=== PATIENT | female | born 1980 | race Caucasian/White ===

== ENCOUNTER → 2019-09-28 16:21 | Outpatient (CLI) | payer OTHER, SELFPAY ==
--- NOTE | 2019-09-28 16:23 | DI.MG.S_ITS ---
BILATERAL DIGITAL SCREENING MAMMOGRAM 3D/2D WITH CAD: 09/28/2019 CLINICAL: Routine screening. Baseline exam. No prior exams were available for comparison. The tissue of both breasts is heterogeneously dense. This may lower the sensitivity of mammography. Current study was also evaluated with a Computer Aided Detection (CAD) system. No significant masses, calcifications, or other findings are seen in either breast. IMPRESSION: NEGATIVE There is no mammographic evidence of malignancy. A 1 year screening mammogram is recommended. This exam was interpreted at Station ID: [id number]. NOTE: For mammograms, a report in lay terms will be sent to the patient. Approximately 15% of breast malignancies will not be visualized mammographically. In the management of a palpable breast mass, a negative mammogram must not discourage biopsy of a clinically suspicious lesion. Electronically Signed By: Aaron morelos/[email or web address]:09/28/2019 16:57:24 letter sent: Normal Exam ACR BI-RADS Category 1: Negative 3341F
== END ==
PROVIDERS: PCP Naturopath; Visit Provider Obstetrics & Gynecology
DX: Z12.31 Encounter for screening mammogram for malignant neoplasm of breast (principal)
CPT/HCPCS: 77063; 77067

== ENCOUNTER → 2020-10-01 16:49 | Outpatient (CLI) | payer OTHER, SELFPAY ==
--- NOTE | 2020-10-01 | DI.MG.S_ITS ---
BILATERAL DIGITAL SCREENING MAMMOGRAM 3D/2D WITH CAD: 10/01/2020 CLINICAL: Routine screening. Comparison is made to exam dated: 09/28/2019 [facility]. The tissue of both breasts is heterogeneously dense. This may lower the sensitivity of mammography. Current study was also evaluated with a Computer Aided Detection (CAD) system. No significant masses, calcifications, or other findings are seen in either breast. There has been no significant interval change. IMPRESSION: NEGATIVE There is no mammographic evidence of malignancy. A 1 year screening mammogram is recommended. This exam was interpreted at Station ID: [id number]. NOTE: For mammograms, a report in lay terms will be sent to the patient. Approximately 15% of breast malignancies will not be visualized mammographically. In the management of a palpable breast mass, a negative mammogram must not discourage biopsy of a clinically suspicious lesion. Electronically Signed By: Joshua Mcintyre acr/[email or web address]:10/01/2020 17:06:27 letter sent: Normal Exam ACR BI-RADS Category 1: Negative [id number]
== END ==
PROVIDERS: PCP Naturopath; Referring Provider Naturopath; Visit Provider Naturopath
DX: Z12.31 Encounter for screening mammogram for malignant neoplasm of breast (principal)
CPT/HCPCS: 77063; 77067

== ENCOUNTER → 2020-11-19 15:35 | Outpatient (CLI) | payer OTHER, SELFPAY ==
--- NOTE | 2020-11-19 15:37 | DI.CT.S_ITS ---
PROCEDURE: CT CHEST W CON INDICATIONS: Paralysis of vocal cords and larynx, unilateral TECHNIQUE: After the administration of intravenous contrast, 5 mm thick sections acquired from the pulmonary apices to the posterior costophrenic angles. 1 mm axial lung, 5 mm thick coronal and sagittal reformats and 7 mm axial MIP were acquired. For radiation dose reduction, the following was used: automated exposure control, adjustment of mA and/or kV according to patient size. COMPARISON: [facility], CT, CT SOFT TISSUE NECK W CON, 11/19/2020, 15:59. FINDINGS: Image quality: Excellent. Lungs and pleura: No acute air space opacities. A few pulmonary nodules measuring 4 mm or less. Right upper lobe inferiorly 4 mm, (10/207). Right middle lobe 3 mm, (10/160). Left lower lobe subpleural 2 mm, (10/286). A few scattered calcified granuloma. No pleural effusions or pneumothorax. Central and peripheral airways are patent and normal in caliber. Mediastinum: Heart size is normal. No pericardial effusion. No mediastinal or hilar adenopathy by size criteria. Thoracic aorta and central pulmonary arteries are normal in size. Esophagus is normal in caliber. No hiatal hernia. Bones and chest wall: No suspicious bony lesions. No vertebral body compression fractures. No axillary or supraclavicular adenopathy by size criteria. Thyroid gland is unremarkable. Abdomen: Visualized upper abdominal solid organs appear normal. Upper abdominal bowel loops are normal in caliber. The splenic vein is prominent at the hilum, (11/). IMPRESSION: 1. No mass or enlarged adenopathy. 2. A few pulmonary nodules measuring 4 mm or less. These most likely represent noncalcified granuloma. A few calcified granuloma are noted. 3. No acute airspace opacity. Dictated by: Parish Gambino M.D. on 11/19/2020 at 15:33 Approved by: Parish Gambino M.D. on 11/19/2020 at 15:44
--- NOTE | 2020-11-19 15:37 | DI.CT.S_ITS ---
PROCEDURE: CT SOFT TISSUE NECK W CON INDICATIONS: Paralysis of vocal cords and larynx, unilateral TECHNIQUE: After the administration of intravenous contrast, 3.0 mm axial sections acquired from the skull base to the upper chest. Additional 1.5 mm axial sections acquired through the true vocal cords. 1 mm thick coronal reformats were generated. For radiation dose reduction, the following was used: automated exposure control. COMPARISON: [facility], CT, CT CHEST W CON, 11/19/2020, 15:59. FINDINGS: Image quality: Excellent. Vocal cords: There is medial is a uribe of the right vocal cord, as on series 2, image 48. To the limits of the study, no rob masses can be seen. No abnormal enhancement. Neck spaces: The oropharynx, nasopharynx, and pharynx demonstrate no mucosal lesions. The pyriform sinuses, epiglottis, vallecular, and tongue base all appear normal. Extramucosal spaces of the neck are unremarkable. Lymph nodes: No enlarged lymph nodes seen throughout the neck. Vessels: Visualized vasculature appears patent. Glands: The parotid and submandibular glands appear normal. Thyroid gland demonstrates no significant abnormality. Miscellaneous: Visualized brain and orbits appear unremarkable. Lung apices appear clear. Superficial soft tissues appear normal. Bones: No suspicious bony lesions. Visualized sinuses and mastoids appear unremarkable. Focal C6-C7 degenerative change is seen, with mild disc space narrowing. Milder degenerative changes are seen elsewhere. IMPRESSION: There is medialization of the right vocal cord, which is consistent with the given clinical history. No masses or abnormal enhancement can be seen. A cause of the vocal cord paralysis is not identified. Focal C6-C7 degenerative change incidentally noted. Dictated by: Sam Connor M.D. on 11/19/2020 at 15:30 Approved by: Sam Connor M.D. on 11/19/2020 at 15:31
== END ==
PROVIDERS: PCP Naturopath; Referring Provider Specialist; Visit Provider Specialist
DX: J38.01 Paralysis of vocal cords and larynx, unilateral (principal); M47.812 Spondylosis without myelopathy or radiculopathy, cervical region; R91.8 Other nonspecific abnormal finding of lung field
CPT/HCPCS: 70491; 71260

== ENCOUNTER 2020-12-31 09:30 | Outpatient (RCR) | payer OTHER, SELFPAY ==
--- NOTE | 2020-12-04 17:42 | ST.OPIE ---
Visit Care Team Role Provider Type Ariana Santillan ND Primary Care Provider Non-Staff Specialty: Naturopathy Address: [address] [place] [address], [id number] Email: Guille Esquivel MD Attending Provider Non-Staff Referring Provider Specialty: Ear, Nose, Throat Address: [address] [place] [address], [id number] Email: Speech-Language Pathology Initial Evaluation COMPRESSION MOLDING MACHINE TENDER Voice Resonance Evaluation Start: 12/04/20 15:23 Freq: Status: Active Protocol: Document 12/04/20 15:23 CASEY (Rec: 12/04/20 15:32 CASEY [email or web address]) Voice and Resonance Assessment Session Time Visit Start Time 15:30 Visit Stop Time 16:30 Total Visit Minutes 60 Visit Information Visit Number Initial Evaluation Plan of Care Dates 12/04/20 - 03/04/21 Insurance Information [employer] PPD Next Note Type Next Note Type Treatment Note Referral Referring Physician Dr. Guille Esquivel Reason for Referral Paralysis of vocal cords, unilateral Patient History General Information The pt is a 40-yr-old female who was seen by Dr. 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 Symptoms started in January 2020 when the pt had an upper respiratory infection with associated hoarse voice. All other symptoms resolve with exception of voice quality. The pt started experiencing SOB while walking/hiking up hills in May. 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 Hearing Hearing Level Normal Vision Vision Status Not Impaired [place] Langauge Language(s) Spoken in the Home Ma[place] Educational Status Education Level Master's Degree Occupational Status Occupation Status Teacher (7 & 8 grade) Previous Therapy Previous Speech-Language Therapy No Oral Motor Assessment Source: [place] [employer] (MARILE[employer]). Oral-Motor Eval Completed No Subjective Subjective The pt arrived on time and provided case history supplemental to medical records. Expressed goals: That voice not become worse, and that she be able to maintain her job as a teacher, which is the family's only source of income. - Laryngeal Performance Voice Handicap Index Function Subtotal 14, Moderate Physical Subtotal 16, Mild Emotional Subtotal 12, Moderate Total Score 42 Severity Moderate (31-60) CAPE-V Overall Severity 25%, Mild (Intermittent) Roughness 28%, Mild-Mod (Intermittent) Breathiness WNL Strain 9%, Minimal (Intermittent) Pitch 15%, Mild (Reduced low range) Normal Resonance? Yes Additional Features Glottal Hoang,Pitch Instability Maximum Phonation Time MPT Norms: Women (15-25) Men (25-35) Loudness (50-60 dB); Speaking Rate: Oral Reading of Sentences (190 Words Per Minute); Oral Reading of Paragraphs (160-170 WPM); Speaking Rate in Conversation (150-250 WPM) Maximum Phonation Time 21.5 s Maximum Phonation Time Adequate for Speech Jitter/Shimmer Norms: Jitter (Less than or equal to 1.040% - Frequency) Norms: Shimmer (Less than or equal to 3.810% - Amplitude) Jitter 0.16% WNL Shimmer 1.62% WNL Pitch [place] Pitch [place] Reduced Range Pitch [place] Comments 200-541 Hz. Clear voice without breaks on glissando up scale. Minimal descension, quickly into hoang. Breath Support Speaks on Room Air Yes Postural Alignment Stance Balanced Shoulders Symmetrical Resonance Nasal Resonance Normal Oral Resonance Normal Therapeutic Techniques Therapy Tactics Shifting Tone Focus,Breath Support,Postural Adjustment, Increase Loudness Other Tactics Educated pt RE glottal hoang with demonstration. Identified hoang in pt's voice to increase awareness. Findings Findings Mild-Moderate Impairment Voice/Resonance Assessment Assessment The pt presents with mild- moderate dysphonia secondary to unilateral (left side) vocal fold paralysis. Hoarseness of voice was intermittent in conversation and minimally present in structured tasks, primarily presenting as glottal hoang. Pt reports mild to moderate impact of voice on functional, physical and emotional scales (VHI) and reports inconsistent fatigue, sometimes being able to speak or read aloud at length, and other times not. She also reports decreased breath support for moderately strenuous activities, such as walking or hiking up hills, saying that others have noted her audible breathing. The pt is a good candidate for voice therapy but was also educated on other treatments that may be pursued should she not achieve the results she is looking for with therapy alone. She expressed motivation to do whatever needs to be done. The pt also reported occasional coughing when swallowing consecutive sips of water and when drinking with chin tilted upwards. Education was provided RE normal swallow function and potential impacts of VF paralysis on swallow safety. Recommended pt consume single sips of liquid at a time with chin in neutral position. This will be monitored over the course of treatment. Prognosis Rehabilitation Potential Good - Recommendations Treatment Recommended Yes Treatment Frequency/Duration 8 visits across 3 mos Placement Recommendation Home Short Term Goals 1. The pt will perform diaphragmatic breathing in structured tasks with 80% accuracy to improve breath support for speech and voice. 2. The pt will perform laryngeal relaxation techniques with min cues and 80% acc to improve vocal quality and ease. 3. The pt will perform exercises to increase vocal fold adduction to reduce compensatory function and improve vocal quality. 4. The pt will demonstrate ability to shift into and out of glottal hoang to increase behavioral control of voice and reduce roughness of voice. Electrical Machine Builder Goals 1. The pt will perform diaphragmatic breathing independently in vocal exercises and spontaneous speech tasks to improve breath support for speech and voice. 2. The pt will exhibit glottal hoang in no more than 20% of speech in spontaneous and structured tasks to increase quality of voice. 3. Using VF adduction techniques as needed, the pt will produce vocal quality WNL in spontaneous conversation to improve ability to express herself in functional conversations and produce voice necessary to meet her professional responsibilities. 4. The pt will exhibit no greater than minimal dysphonia symptoms as measured by VHI and CAPE-V perceptual rating forms. Patient/Caregiver Education Patient/Family Education Described results of evaluation,Patient Understanding,Patient Needs More Info Vocally Abusive Behavior Behavior Rating Alcohol Consumption Infrequently Benedict Talking Infrequently Arguing (peers/siblings/other) Occasionally Athletic Activity Yelling Never Mouth Breathing Occasionally Caffeine Use Occasionally Calling from Distance Frequently Cheerleading Participation Never Coughing/Sneezing Loudly Occasionally Crying Infrequently Use of Dairy Products Infrequently Environmental Irritant Exposure Occasionally Use of Inhalants Never Laughing Hard/Abusively Frequently Singing Abusively Occasionally Participation In Plays Never Smoking Never Excessive Talking Frequently Making Animal /Toy Noises Occasionally Yelling/Screaming Infrequently
--- NOTE | 2020-12-17 16:52 | ST.OPTN ---
Visit Care Team Role Provider Type Ariana Santillan YULIET Primary Care Provider Non-Staff Address: [address] [place] [address], [id number] Guille Esquivel MD Attending Provider Non-Staff Referring Provider Address: [facility] [address], [address] SEWER SYSTEM SUPERVISOR Treatment Note SEWER SYSTEM SUPERVISOR Treatment Note Start: 12/04/20 15:23 Freq: Status: Active Protocol: Document 12/17/20 15:24 CASEY (Rec: 12/17/20 15:24 CASEY [email or web address]) Speech Pathology Treatment Note Session Time Visit Start Time 15:30 Visit Stop Time 16:15 Total Visit Minutes 45 Visit Information Visit Number 1 Plan of Care Dates 12/04/20 - 03/04/21 Insurance Information [employer] PPD Setting Treatment Setting Outpatient Care Visit Type Note Type Treatment Note Next Note Type Next Note Type Treatment Note General Information General Information The pt is a 40-yr-old female who was seen by Dr. 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 Symptoms started in January 2020 when the pt had an upper respiratory infection with associated hoarse voice. All other symptoms resolve with exception of voice quality. The pt started experiencing SOB while walking/hiking up hills in May. 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 Subjective Observations/Patient Presentation The pt arrived on time. No new complaints. Chief Complaint(s) Voice Patient Knowledge/Awareness of SEWER SYSTEM SUPERVISOR Role Good in Treatment Objective Short Term Goals 1. The pt will perform diaphragmatic breathing in structured tasks with 80% accuracy to improve breath support for speech and voice. 2. The pt will perform laryngeal relaxation techniques with min cues and 80% acc to improve vocal quality and ease. 3. The pt will perform exercsises to increase vocal fold adduction to reduce compensatory function and improve vocal quality. 4. The pt will demonstrate ability to shift into and out of glottal gray to increase behavioral control of voice and reduce roughness of voice. Fpc Goals 1. The pt will perform diaphragmatic breathing independently in vocal exercises and spontaneous speech tasks to improve breath support for speech and voice. 2. The pt will exhibit glottal grya in no more than 20% of speech in spontaneous and structured tasks to increase quality of voice. 3. Using VF adduction techniques as needed, the pt will produce vocal quality WNL in spontaneous conversation to improve ability to express herself in functional conversations and produce voice necessary to meet her professional responsibilities. 4. The pt will exhibit no greater than minimal dysphonia symptoms as measured by VHI and CAPE-V perceptual rating forms. Treatment Activities Educated pt on subsystems of voice. Pt verbalized understanding. Initiated training of diaphragmatic breathing using supine position, mirror and hands on self for biofeedback. Pt able to shift from clavicular to diaphragmatic breathing with use of biofeedback and min-mod prompts. Trained pt in yawn/sigh technique to reduce laryngeal tension; sustained and staccato phonation to improve breath support and VF adduction. Pt able to perform all exercises as instructed with min cues. Continued education RE glottal gray. Pt able to minimize in structured tasks; still exhibits frequent rough voice and gray in conversational speech. Needs reinforcement. Assessment Patient Response to Treatment Good Rehab Potential Good Impairments Identified Vocal Quality,Vocal Hygiene Assessment of Overall Progress Improving Assessment of Improvement The pt demonstrated good understanding of education and training provided today. Able to perform all tasks as instructed with min cues. Frequent glottal gray perceived in voice. The pt is able to minimize in structured tasks, which confirms its presence, but continues with frequent episodes in spontaneous speech . 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 Reviewed with Patient Goals,Progress Being Made,Home Exercise Program Patient/Caregiver Understanding Good Plan Therapeutic Contents Voice Training Provided Patient/Caregiver Instruction Home Exercise Program,Plan of Care,Questions/Concerns Therapy Recommendations Continue with Current Program
--- NOTE | 2020-12-24 17:03 | ST.OPTN ---
Visit Care Team Role Provider Type Ariana Santillan YULIET Primary Care Provider Non-Staff Address: [address] [place] [address], [address] Guille Esquivel MD Attending Provider Non-Staff Referring Provider Address: [address] [place], [place] [address]d[place] [address], [address] ASSISTANT COUNSEL Treatment Note ASSISTANT COUNSEL Treatment Note Start: 12/04/20 15:23 Freq: Status: Active Protocol: Document 12/24/20 16:52 CASEY (Rec: 12/24/20 17:03 CASEY [email or web address]) Speech Pathology Treatment Note Session Time Visit Start Time 15:30 Visit Stop Time 16:15 Total Visit Minutes 45 Visit Information Visit Number 2 Plan of Care Dates 12/04/20 - 03/04/21 Insurance Information [employer] PPD Setting Treatment Setting Outpatient Care Visit Type Note Type Treatment Note Next Note Type Next Note Type Treatment Note General Information General Information The pt is a 40-yr-old female who was seen by Dr. 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 Symptoms started in January 2020 when the pt had an upper respiratory infection with associated hoarse voice. All other symptoms resolve with exception of voice quality. The pt started experiencing SOB while walking/hiking up hills in May. 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 Subjective Observations/Patient Presentation The pt arrived on time and stated, Listen to how good my voice sounds! 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 She was pleased with the clarity of her voice, which did not feel tired at the end of the day. Chief Complaint(s) Voice Patient Knowledge/Awareness of ASSISTANT COUNSEL Role Excellent in Treatment Patient/Caregiver Compliance with Home Excellent Exercise Program Objective Short Term Goals 1. The pt will perform diaphragmatic breathing in structured tasks with 80% accuracy to improve breath support for speech and voice. 2. The pt will perform laryngeal relaxation techniques with min cues and 80% acc to improve vocal quality and ease. 3. The pt will perform exercsises to increase vocal fold adduction to reduce compensatory function and improve vocal quality. 4. The pt will demonstrate ability to shift into and out of glottal gray to increase behavioral control of voice and reduce roughness of voice. Correction Goals 1. The pt will perform diaphragmatic breathing independently in vocal exercises and spontaneous speech tasks to improve breath support for speech and voice. 2. The pt will exhibit glottal gray in no more than 20% of speech in spontaneous and structured tasks to increase quality of voice. 3. Using VF adduction techniques as needed, the pt will produce vocal quality WNL in spontaneous conversation to improve ability to express herself in functional conversations and produce voice necessary to meet her professional responsibilities. 4. The pt will exhibit no greater than minimal dysphonia symptoms as measured by VHI and CAPE-V perceptual rating forms. Treatment Activities The pt's voice was perceived to be much clearer at start of session as compared to previous sessions. As the session continued and conversation topics became more subdued, presence of glottal gray was increasingly perceived. Education was continued on that topic, as well as forward focus resonance (FFR), which was trained using /m/ in isolation , CV syllables and CVC words, initially in chanting and then transitioned CVC words to normal speech intonation. The pt was able to perceive forward vs back resonance when presented by clinician and was able to perform herself x1 , demonstrating understanding of contrast in vocal postures. She performed chanting of words with 98% acc of clear vocal quality, dropping to 87% acc when transitioned to typical speech intonation. The pt independently identified most errors and was able to correct them within 1-3 attempts. Glottal gray again was evident in spontaneous conversation; however, the pt exhibited significantly increased awareness and self- correction of it, demonstrating good understanding and ability to correct. Assessment Patient Response to Treatment Excellent Rehab Potential Excellent Impairments Identified Vocal Quality,Vocal Hygiene Progress Towards Goals Good Progress Assessment of Overall Progress Improving Assessment of Improvement Excellent progress made today in identifying and eliminating glottal gray in structured tasks and initiating same in spontaneous speech. Using microphone and hydrating well throughout the day, she preserved vocal quality over the course of a full day of in -class teaching. She is progressing nicely toward goals. Reviewed with Patient Goals,Progress Being Made,Home Exercise Program Patient/Caregiver Understanding Excellent Plan Amount of Therapy Recommended 1-2 Months Frequency of Treatment Once a Week Length of Session 45 Minutes Therapeutic Contents Voice Training Provided Patient/Caregiver Instruction Home Exercise Program,Plan of Care,Questions/Concerns Therapy Recommendations Continue with Current Program
--- NOTE | 2020-12-31 12:47 | ST.OPTN ---
Visit Care Team Role Provider Type Ariana YULIET Santillan Primary Care Provider Non-Staff Address: [address] [place] [address], [id number] Guille Esquivel MD Attending Provider Non-Staff Referring Provider Address: [address] [place], [place] [address]daryl [address], [address] SEED CLEANER OPERATOR Treatment Note SEED CLEANER OPERATOR Treatment Note Start: 12/04/20 15:23 Freq: Status: Active Protocol: Document 12/31/20 12:35 CASEY (Rec: 12/31/20 12:47 CASEY [email or web address]) Speech Pathology Treatment Note Session Time Visit Start Time 09:40 Visit Stop Time 10:25 Total Visit Minutes 45 Visit Information Visit Number 3 Plan of Care Dates 12/04/20 - 03/04/21 Insurance Information [employer] PPD Setting Treatment Setting Outpatient Care Visit Type Note Type Treatment Note Next Note Type Next Note Type Treatment Note General Information General Information The pt is a 40-yr-old female who was seen by Dr. 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 Symptoms started in January 2020 when the pt had an upper respiratory infection with associated hoarse voice. All other symptoms resolve with exception of voice quality. The pt started experiencing SOB while walking/hiking up hills in May. 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 Subjective Observations/Patient Presentation The pt arrived on time. 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 She also reported noticing increased vocal strain at home, particularly during emotional conversations or events, such as arguing with her children. Finally, she observed inability to project her voice when needed, such as to call to another teacher who is a significant distance from her (e.g., down the hallway). She has been able to delegate calling at home (e.g., calling the dog or to the children) to her and children in order to protect her voice. Chief Complaint(s) Voice Patient Knowledge/Awareness of SEED CLEANER OPERATOR Role Excellent in Treatment Patient/Caregiver Compliance with Home Excellent Exercise Program Objective Short Term Goals 1. The pt will perform diaphragmatic breathing in structured tasks with 80% accuracy to improve breath support for speech and voice. 2. The pt will perform laryngeal relaxation techniques with min cues and 80% acc to improve vocal quality and ease. 3. The pt will perform exercsises to increase vocal fold adduction to reduce compensatory function and improve vocal quality. 4. The pt will demonstrate ability to shift into and out of glottal gray to increase behavioral control of voice and reduce roughness of voice. Machine Inspector Goals 1. The pt will perform diaphragmatic breathing independently in vocal exercises and spontaneous speech tasks to improve breath support for speech and voice. 2. The pt will exhibit glottal gray in no more than 20% of speech in spontaneous and structured tasks to increase quality of voice. 3. Using VF adduction techniques as needed, the pt will produce vocal quality WNL in spontaneous conversation to improve ability to express herself in functional conversations and produce voice necessary to meet her professional responsibilities. 4. The pt will exhibit no greater than minimal dysphonia symptoms as measured by VHI and CAPE-V perceptual rating forms. Treatment Activities Collaborated with pt RE strategies to reduce emotion in conversations. Pt stated she felt able to state openly to her family that she needs to protect her voice and that conversations need to be civil and not argumental. Continued education and training in sustained phonation with increased loudness, staccato phonation, and reciting of words/phrases for which the pt would typically need to project her voice (e.g., dog's and family members' names, teacher's name , commands to the kids, etc.). Using yawn-sigh technique to reduce laryngeal tension, the pt performed tasks with loudness levels between 75-80 dB with intermittent presence of rough vocal quality. With verbal coaching, the pt improved ability to self- perceive and correct rough voice, targeting open throat and push from respiratory muscles. Discussed POC and agreed to reduce frequency to 1 visit every 3 wks for the pt to practice techniques in functional settings. Assessment Patient Response to Treatment Excellent Rehab Potential Excellent Impairments Identified Vocal Quality,Vocal Hygiene Progress Towards Goals Good Progress Assessment of Overall Progress Improving Assessment of Improvement Excellent progress made today in identifying and eliminating vocal roughness in structured tasks targeting increased loudness. Anticipate the pt's stamina and vocal quality with loudness to improve with home practice. She has been very attentive to all techniques and exercises and demonstrates excellent awareness to deficits and compliance with HEP. Vocal quality is improving with only intermittent episodes of rough quality, which is eliminated with decreased laryngeal tension. Glottal gray is still moderately present but also improving. Reviewed with Patient Goals,Progress Being Made,Home Exercise Program Patient/Caregiver Understanding Excellent Plan Amount of Therapy Recommended 1-2 Months Comment 1 visit every 3 wks Length of Session 45 Minutes Therapeutic Contents Voice Training Provided Patient/Caregiver Instruction Home Exercise Program,Plan of Care,Questions/Concerns Therapy Recommendations Continue with Current Program
--- NOTE | 2021-05-06 16:17 | ST.OPDS ---
Visit Care Team Role Provider Type Ariana Santillan YULIET Primary Care Provider Non-Staff Address: [address] [place] [address], [id number] Guille Esquivel MD Attending Provider Non-Staff Referring Provider Address: [facility] [address], [address] SANDWICH MACHINE OPERATOR Treatment Note SANDWICH MACHINE OPERATOR Treatment Note Start: 12/04/20 15:23 Freq: Status: Active Protocol: Document 05/06/21 16:15 CASEY (Rec: 05/06/21 16:17 CASEY [email or web address]) Speech Pathology Treatment Note Visit Information Plan of Care Dates 12/04/20 - 03/04/21 Insurance Information [employer] PPD Setting Treatment Setting Outpatient Care Visit Type Note Type Discharge Summary General Information General Information The pt is a 40-yr-old female who was seen by Dr. 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 Symptoms started in January 2020 when the pt had an upper respiratory infection with associated hoarse voice. All other symptoms resolve with exception of voice quality. The pt started experiencing SOB while walking/hiking up hills in May. 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 Subjective Observations/Patient Presentation Pt was last seen 12/31/20. Pt did not respond to SANDWICH MACHINE OPERATOR's attempts to check in by phone and will be discharged at this time. Chief Complaint(s) Voice Objective Short Term Goals PT MADE GOOD PROGRESS TOWARD GOALS. HAD NOT ACHIEVED GOALS AT LAST VISIT. 1. The pt will perform diaphragmatic breathing in structured tasks with 80% accuracy to improve breath support for speech and voice. 2. The pt will perform laryngeal relaxation techniques with min cues and 80% acc to improve vocal quality and ease. 3. The pt will perform exercsises to increase vocal fold adduction to reduce compensatory function and improve vocal quality. 4. The pt will demonstrate ability to shift into and out of glottal gray to increase behavioral control of voice and reduce roughness of voice. Dry End Operator Goals 1. The pt will perform diaphragmatic breathing independently in vocal exercises and spontaneous speech tasks to improve breath support for speech and voice. 2. The pt will exhibit glottal gray in no more than 20% of speech in spontaneous and structured tasks to increase quality of voice. 3. Using VF adduction techniques as needed, the pt will produce vocal quality WNL in spontaneous conversation to improve ability to express herself in functional conversations and produce voice necessary to meet her professional responsibilities. 4. The pt will exhibit no greater than minimal dysphonia symptoms as measured by VHI and CAPE-V perceptual rating forms. Plan Therapy Recommendations Discharge from Speech Therapy
== END 2021-05-07 09:27 | disposition home or self-care (01) ==
LOC: SP 09:30
PROVIDERS: PCP Naturopath; Referring Provider Specialist; Visit Provider Specialist
DX: J38.01 Paralysis of vocal cords and larynx, unilateral (principal); R49.0 Dysphonia
CPT/HCPCS: 92507; 92520; 92524

== ENCOUNTER → 2021-10-16 17:12 | Outpatient (CLI) | payer OTHER, SELFPAY ==
--- NOTE | 2021-10-16 17:14 | DI.MG.S_ITS ---
BILATERAL DIGITAL SCREENING MAMMOGRAM 3D/2D WITH CAD: 10/16/2021 CLINICAL: Routine screening. Comparison is made to exams dated: 10/01/2020 mammogram and 09/28/2019 mammogram - [facility]. The tissue of both breasts is heterogeneously dense. This may lower the sensitivity of mammography. Current study was also evaluated with a Computer Aided Detection (CAD) system. There is a new oval asymmetry with an obscured and circumscribed margin in the right breast anterior depth central to the nipple seen on the mediolateral oblique view only. No other significant masses, calcifications, or other findings are seen in either breast. IMPRESSION: INCOMPLETE: NEEDS ADDITIONAL IMAGING EVALUATION The new oval asymmetry in the right breast is indeterminate. Additional views with possible ultrasound are recommended. This exam was interpreted at Station ID: [id number]. NOTE: For mammograms, a report in lay terms will be sent to the patient. Approximately 15% of breast malignancies will not be visualized mammographically. In the management of a palpable breast mass, a negative mammogram must not discourage biopsy of a clinically suspicious lesion. Electronically Signed By: Silvana mcfadden/:10/17/2021 08:29:06 letter sent: Additional Imaging Needed ACR BI-RADS Category 0: Incomplete 3340F
== END ==
PROVIDERS: PCP Naturopath; Referring Provider Naturopath; Visit Provider Naturopath
DX: Z12.31 Encounter for screening mammogram for malignant neoplasm of breast (principal)
CPT/HCPCS: 77063; 77067

== ENCOUNTER → 2021-11-19 15:00 | Outpatient (CLI) | payer OTHER, SELFPAY ==
--- NOTE | 2021-11-19 | DI.MG.S_ITS ---
UNILATERAL RIGHT DIGITAL DIAGNOSTIC MAMMOGRAM 3D/2D WITH ADDITIONAL VIEWS: 11/19/2021 CLINICAL: Additional evaluation requested from prior study. Comparison is made to exams dated: 10/16/2021 mammogram, 10/01/2020 mammogram, and 09/28/2019 mammogram - [facility]. The tissue of right breast is heterogeneously dense. This may lower the sensitivity of mammography. The oval asymmetry with an obscured and circumscribed margin in the right breast anterior depth central to the nipple seen on the mediolateral oblique view only is no longer convincingly seen. This is not seen in additional views. No other significant masses or calcifications are seen in the breast. IMPRESSION: INCOMPLETE: NEEDS ADDITIONAL IMAGING EVALUATION An ultrasound is recommended to confirm resolution of the asymmetry in the right breast anterior depth central to the nipple seen on the mediolateral oblique view only. This was performed immediately following this exam. This exam was interpreted at Station ID: [id number]. NOTE: For mammograms, a report in lay terms will be sent to the patient. Approximately 15% of breast malignancies will not be visualized mammographically. In the management of a palpable breast mass, a negative mammogram must not discourage biopsy of a clinically suspicious lesion. Electronically Signed By: Silvana mcfadden/:11/19/2021 15:37:57 ACR BI-RADS Category 0: Incomplete [id number]
--- NOTE | 2021-11-19 | DI.US.S_ITS ---
LIMITED ULTRASOUND OF RIGHT BREAST: 11/19/2021 CLINICAL: Patient returns today to evaluate an asymmetry in the right breast. Comparison is made to exams dated: 11/19/2021 mammogram, 10/16/2021 mammogram, 10/01/2020 mammogram, and 09/28/2019 mammogram - [facility]. Color flow and real-time ultrasound of the right breast 1 o'clock, and retroareolar regions were performed. Cary scale images of the real-time examination were reviewed. There is possible 5 mm duct ectasia vs cyst cluster in the right breast at 1 o'clock anterior depth. This correlates with mammography findings. Color flow imaging demonstrates that there is no vascularity present. Incidental finding of a 5 mm possible cyst deep to this area without mammographic correlate. IMPRESSION: PROBABLY BENIGN The findings including 5 mm duct ectasia in the right breast are probably benign. A follow-up left mammogram and ultrasound in 6 months is recommended to demonstrate stability. Findings and recommendations were conveyed to the patient at time of exam. This exam was interpreted at Station ID: [id number]. Electronically Signed By: Silvana mcfadden/:11/19/2021 16:39:33 letter sent: Followup Recommended Ultrasound BI-RADS: 3 Probably benign
== END ==
PROVIDERS: PCP Naturopath; Referring Provider Naturopath; Visit Provider Naturopath
DX: R92.2 Inconclusive mammogram (principal); N60.41 Mammary duct ectasia of right breast
CPT/HCPCS: 76642; 77065; G0279

== ENCOUNTER → 2022-07-08 09:33 | Outpatient (CLI) | payer OTHER, SELFPAY ==
--- NOTE | 2022-07-08 | DI.US.S_ITS ---
LIMITED ULTRASOUND OF RIGHT BREAST: 07/08/2022 CLINICAL: 6 month follow-up of cysts. Comparison is made to exams dated: 07/08/2022 mammogram, 11/19/2021 ultrasound, 11/19/2021 mammogram, 10/16/2021 mammogram, and 10/01/2020 mammogram - [facility]. Color flow and real-time ultrasound of the right breast 1 o'clock region were performed. Cary scale images of the real-time examination were reviewed. There is a 0.6 cm x 0.4 cm x 0.4 cm oval cyst with a septated internal wall in the right breast at 1 o'clock anterior depth 3 cm from the nipple. This abnormality is not significantly changed and likely correlates with mammography findings. Color flow imaging demonstrates that there is no vascularity present. IMPRESSION: PROBABLY BENIGN The 0.6 cm complicated cyst or duct ectasia in the right breast is probably benign. A follow-up mammogram and an ultrasound in 6 months is recommended to demonstrate stability. Patient will be due for left mammogram at that time. Exam findings were conveyed to the patient. This exam was interpreted at Station ID: [id number]. Electronically Signed By: Parish Gambino M.D. slc/:07/09/2022 10:53:01 letter sent: Followup Recommended Ultrasound BI-RADS: 3 Probably benign
--- NOTE | 2022-07-08 | DI.MG.S_ITS ---
UNILATERAL RIGHT DIGITAL DIAGNOSTIC MAMMOGRAM 3D/2D SHORT-TERM FOLLOW-UP: 07/08/2022 CLINICAL: Short term follow up of the right breast. Comparison is made to exams dated: 11/19/2021 mammogram, 10/16/2021 mammogram, 10/01/2020 mammogram, 11/19/2021 ultrasound, and 09/28/2019 mammogram - [facility]. The tissue of right breast is heterogeneously dense. This may lower the sensitivity of mammography. There is an asymmetry in the right breast anterior depth central to the nipple seen on the mediolateral oblique view only. This is less prominent. No other significant masses or calcifications are seen in the breast. IMPRESSION: INCOMPLETE: NEEDS ADDITIONAL IMAGING EVALUATION The asymmetry in the right breast is indeterminate. A targeted ultrasound is recommended and will immediately follow. Based on the Tyrer Cuzick model (a risk assessment model) the patient's lifetime risk is 10.4% and her 10 year risk is 1.5%. According to the ACR, ACS, and NCCN guidelines, an annual breast MRI exam along with mammogram is recommended if the patient's lifetime risk is 20% or greater. This exam was interpreted at Station ID: [id number]. NOTE: For mammograms, a report in lay terms will be sent to the patient. Approximately 15% of breast malignancies will not be visualized mammographically. In the management of a palpable breast mass, a negative mammogram must not discourage biopsy of a clinically suspicious lesion. Electronically Signed By: Parish Gambino M.D. slc/:07/08/2022 09:56:11 ACR BI-RADS Category 0: Incomplete 3340F
== END ==
PROVIDERS: PCP Naturopath; Referring Provider Naturopath; Visit Provider Naturopath
DX: R92.2 Inconclusive mammogram (principal); N60.01 Solitary cyst of right breast
CPT/HCPCS: 76642; 77065; G0279

== ENCOUNTER → 2023-01-21 13:49 | Outpatient (CLI) | payer OTHER, SELFPAY ==
--- NOTE | 2023-01-21 | DI.MG.S_ITS ---
BILATERAL DIGITAL DIAGNOSTIC MAMMOGRAM 3D/2D: 01/21/2023 CLINICAL: Short term follow up of the right breast, due for bilateral imaging. Comparison is made to exams dated: 07/08/2022 mammogram, 11/19/2021 mammogram, and 10/16/2021 mammogram - [facility]. Both breasts are heterogeneously dense, which may obscure small masses (category c / 51-75% glandular tissue). There is an asymmetry in the right breast anterior depth central to the nipple seen on the mediolateral oblique view only. This is less prominent. No other significant masses, calcifications, or other findings are seen in either breast. IMPRESSION: INCOMPLETE: NEEDS ADDITIONAL IMAGING EVALUATION The asymmetry in the right breast is indeterminate. A targeted ultrasound is recommended and will immediately follow. Based on the Tyrer Cuzick model (a risk assessment model) the patient's lifetime risk is 10.5% and her 10 year risk is 1.7%. According to the ACR, ACS, and NCCN guidelines, an annual breast MRI exam along with mammogram is recommended if the patient's lifetime risk is 20% or greater. This exam was interpreted at Station ID: [id number]. NOTE: For mammograms, a report in lay terms will be sent to the patient. Approximately 15% of breast malignancies will not be visualized mammographically. In the management of a palpable breast mass, a negative mammogram must not discourage biopsy of a clinically suspicious lesion. Electronically Signed By: Parish Gambino M.D. slc/:01/21/2023 14:22:11 ACR BI-RADS Category 0: Incomplete 3340F
--- NOTE | 2023-01-21 | DI.US.S_ITS ---
LIMITED ULTRASOUND OF RIGHT BREAST: 01/21/2023 CLINICAL: Short term follow up of the right breast. Patient returns for a 6 month follow up of the right breast. Comparison is made to exams dated: 07/08/2022 ultrasound, 01/21/2023 mammogram, 07/08/2022 mammogram, 11/19/2021 ultrasound, 11/19/2021 mammogram, and 10/16/2021 mammogram - [facility]. Color flow and real-time ultrasound of the right breast were performed. Cary scale images of the real-time examination were reviewed. There is a stable 0.6 cm x 0.4 cm x 0.3 cm oval cyst with a septated internal wall in the right breast at 3 o'clock anterior depth 3 cm from the nipple. This oval cyst is anechoic. This correlates with mammography findings. Color flow imaging demonstrates that there is no vascularity present. IMPRESSION: PROBABLY BENIGN The stable 0.6 cm minimally complicated cyst in the right breast is probably benign. A follow-up mammogram and an ultrasound in 12 months is recommended to demonstrate long-term stability. Exam findings were conveyed to the patient. This exam was interpreted at Station ID: [id number]. Electronically Signed By: Parish Gambino M.D. slc/:01/21/2023 14:49:24 letter sent: Followup Recommended Ultrasound BI-RADS: 3 Probably benign
== END ==
PROVIDERS: PCP Naturopath; Referring Provider Naturopath; Visit Provider Naturopath
DX: R92.2 Inconclusive mammogram (principal); N60.01 Solitary cyst of right breast
CPT/HCPCS: 76642; 77066; G0279

== ENCOUNTER → 2024-05-03 08:29 | Outpatient (CLI) | payer OTHER, SELFPAY ==
--- NOTE | 2024-05-03 08:30 | DI.MG.S_ITS ---
BILATERAL DIGITAL DIAGNOSTIC MAMMOGRAM 3D/2D SHORT-TERM FOLLOW-UP: 05/03/2024 CLINICAL: Short term follow up of the right breast, due for bilateral imaging. Comparison is made to exams dated: 01/21/2023 mammogram, 07/08/2022 mammogram, 11/19/2021 mammogram, 10/16/2021 mammogram, 01/21/2023 ultrasound, and 07/08/2022 ultrasound - [facility]. Both breasts are extremely dense, which lowers the sensitivity of mammography (category d />75% glandular tissue). There is a stable asymmetry in the right breast anterior depth central to the nipple seen on the mediolateral oblique view only. No other significant masses, calcifications, or other findings are seen in either breast. IMPRESSION: INCOMPLETE: NEEDS ADDITIONAL IMAGING EVALUATION The stable asymmetry in the right breast is indeterminate. An ultrasound is recommended. Based on the Tyrer Cuzick model (a risk assessment model) the patient's lifetime risk is 15.7% and her 10 year risk is 2.7%. According to the ACR, ACS, and NCCN guidelines, an annual breast MRI exam along with mammogram is recommended if the patient's lifetime risk is 20% or greater. This exam was interpreted at Station ID: [id number]. NOTE: For mammograms, a report in lay terms will be sent to the patient. Approximately 15% of breast malignancies will not be visualized mammographically. In the management of a palpable breast mass, a negative mammogram must not discourage biopsy of a clinically suspicious lesion. Electronically Signed By: Guille garcia/jailyn:05/03/2024 10:14:11 ACR BI-RADS Category 0: Incomplete 3340F
--- NOTE | 2024-05-03 08:31 | DI.US.S_ITS ---
LIMITED ULTRASOUND OF RIGHT BREAST: 05/03/2024 CLINICAL: 6 month follow-up of cysts. Comparison is made to exams dated: 05/03/2024 mammogram, 01/21/2023 ultrasound, 01/21/2023 mammogram, 07/08/2022 ultrasound, 11/19/2021 ultrasound, and 11/19/2021 mammogram - [facility]. Color flow and real-time ultrasound of the right breast 1 o'clock region were performed. Cary scale images of the real-time examination were reviewed. There is a benign 0.5 cm x 0.4 cm x 0.3 cm oval cyst with a septated internal wall in the right breast at 1 o'clock anterior depth 3 cm from the nipple. This oval cyst is anechoic. This correlates with mammography findings. Color flow imaging demonstrates that there is no vascularity present. This lesion has not significantly changed when compared to multiple prior exams dating back to 11/19/2021, and is therefore considered benign. IMPRESSION: BENIGN There is no sonographic evidence of malignancy. The 0.5 cm x 0.4 cm x 0.3 cm oval cyst in the right breast is benign. Return to annual mammogram screening schedule is recommended. This exam was interpreted at Station ID: [id number]. Electronically Signed By: Guille garcia/jailyn:05/03/2024 10:16:48 letter sent: Normal Exam Ultrasound BI-RADS: 2 Benign
== END ==
LOC: MAMMO 08:29
PROVIDERS: PCP Naturopath; Referring Provider Naturopath; Visit Provider Naturopath
DX: R92.2 Inconclusive mammogram (principal); N60.01 Solitary cyst of right breast; R92.343 Mammographic extreme density, bilateral breasts
CPT/HCPCS: 76642; 77066; G0279

== ENCOUNTER → 2025-05-05 16:16 | Outpatient (CLI) | payer OTHER, SELFPAY ==
--- NOTE | 2025-05-05 16:18 | DI.MG.S_ITS ---
MM screening mammo BI: 05/05/2025. BI-RADS: 1 CLINICAL: 44-year old female for bilateral screening mammogram. Tyrer-Cuzick lifetime risk of 11.4%. No personal or first-degree family history of breast cancer. PRIOR EXAMS 05/03/2024, 01/21/2023, 07/08/2022, 11/19/2021, 10/16/2021, 10/01/2020, 09/28/2019. MAMMOGRAPHY TECHNIQUE: 2D and 3D (tomosynthesis) digital mammographic views obtained, with additional images as needed for full coverage. Current study was also evaluated with a Computer Aided Detection (CAD) system. DENSITY D. The breasts are extremely dense, which lowers the sensitivity of mammography. MAMMOGRAPHY FINDINGS Bilateral: No suspicious mass, asymmetry, microcalcification, or other abnormality seen. IMPRESSION: * No evidence of malignancy. RECOMMENDATIONS Bilateral * Annual screening mammography. OVERALL ASSESSMENT CATEGORY BI-RADS-1: Negative. The [employer] recommends annual screening mammography beginning at age 40 for women with average risk of breast cancer. ELECTRONICALLY SIGNED: Aaron Coelho M.D. on 05/08/2025 at 05:03:20 PM PT Interpreting Station ID: [id number]
== END ==
LOC: MAMMO 16:17
PROVIDERS: PCP Naturopath; Referring Provider Naturopath; Visit Provider Naturopath
DX: Z12.31 Encounter for screening mammogram for malignant neoplasm of breast (principal); R92.343 Mammographic extreme density, bilateral breasts
CPT/HCPCS: 77063; 77067

== ENCOUNTER → 2025-06-23 08:30 | Outpatient (CLI) | payer OTHER, SELFPAY ==
--- NOTE | 2025-06-23 08:31 | DI.US.S_ITS ---
PROCEDURE: US PELVIC COMPLETE INDICATIONS: PELVIC PAIN TECHNIQUE: Real-time scanning was performed of the pelvic organs, with image documentation. Additional endovaginal scanning was necessary due to incomplete visualization of the adnexal and endometrial structures by transabdominal scanning. COMPARISON: None. FINDINGS: Uterus: Absent Ovaries: Right ovary is nonenlarged at 3 cc. Left ovary is nonenlarged at 2 cc. Suspected right complex cyst is present measuring 1.9 cm. Other: No pathologic free fluid IMPRESSION: Nonenlarged ovaries. There is a small right ovarian complex cyst measuring up to 1.9 cm, favored to be a hemorrhagic cyst. A 1-2 month ultrasound is reasonable to ensure resolution. Uterus is absent Dictated by: Bennett Brennan M.D. on 06/23/2025 at 10:02 Approved by: Bennett Brennan M.D. on 06/23/2025 at 10:03
== END ==
PROVIDERS: PCP Naturopath; Referring Provider Naturopath; Visit Provider Naturopath
DX: N83.201 Unspecified ovarian cyst, right side (principal); R10.2 Pelvic and perineal pain; Z90.710 Acquired absence of both cervix and uterus
CPT/HCPCS: 76830; 76856